=== PATIENT | female | born 1990 | race Caucasian/White ===

== ENCOUNTER 2019-02-03 12:54 | Emergency (ER) | payer OTHER ==
[~2019-02-03] VITALS: Ht 167.6 cm; Wt 106.8 kg
[2019-02-03 13:01] VITALS: BP 116/77; TEMP 98.1
[2019-02-03 13:25] LABS: COLLECTION METHOD CLEAN CATCH
[2019-02-03 13:31] LABS: MUCOUS Present /lpf; PH 5 (5-8); URINE APPEARANCE Hazy; URINE BACTERIA None Seen /hpf; URINE BILIRUBIN Negative (NEGATIVE); URINE BLOOD Negative (NEGATIVE); URINE COLOR Yellow; URINE GLUCOSE Negative (NEGATIVE); URINE KETONE Negative (NEGATIVE); URINE LEUKOCYTE ESTERASE Negative (NEGATIVE); URINE NITRATE Negative (NEGATIVE); URINE PROTEIN(semi-quant) Negative (NEGATIVE); URINE RBC 0-2 /hpf; URINE UROBILINOGEN Negative (NEGATIVE)
[2019-02-03] MEDS ORDERED: BRINTELLIX10 PO (13:36)
[2019-02-03] MEDS ORDERED: SEASONIQUE1 TAB PO (13:37)
[2019-02-03] MEDS ORDERED: LIDODERM 5% PATC1 EA TP (14:24)
[2019-02-03 14:30] VITALS: PULSE 85
== END 2019-02-03 14:31 | disposition home or self-care (01) ==
LOC: COL.ER 12:54
PROVIDERS: Physician Assistant
DX: S39.012A Strain of muscle, fascia and tendon of lower back, initial encounter (principal); F43.10 Post-traumatic stress disorder, unspecified; F17.210 Nicotine dependence, cigarettes, uncomplicated; V43.52XA Car driver injured in collision with other type car in traffic accident, initial encounter

== ENCOUNTER 2019-04-06 23:06 | Emergency (ER) | payer SELFPAY ==
[~2019-04-06] VITALS: Ht 170.2 cm; Wt 104.5 kg
[~2019-04-06 23:06] MED LIST: BRINTELLIX10 PO; LIDODERM 5% PATC1 EA TP; SEASONIQUE1 TAB PO
[2019-04-07] MEDS ORDERED: DOXYCYCLINE HY100 MG PO (00:15)
[2019-04-07 00:26] VITALS: BP 124/72; PULSE 86; TEMP 98.2
== END 2019-04-07 00:27 | disposition home or self-care (01) ==
LOC: COL.ER 23:06
DX: L03.314 Cellulitis of groin (principal); F43.10 Post-traumatic stress disorder, unspecified; E66.9 Obesity, unspecified; F17.210 Nicotine dependence, cigarettes, uncomplicated; Z68.36 Body mass index [BMI] 36.0-36.9, adult

== ENCOUNTER 2019-04-11 15:04 | Outpatient (RCR) | payer OTHER ==
[~2019-04-11 15:04] MED LIST changes: +DOXYCYCLINE HY100 MG PO
== END 2019-07-10 | disposition home or self-care (01) ==
LOC: WSOH
DX: S00.211A Abrasion of right eyelid and periocular area, initial encounter (principal); Z90.49 Acquired absence of other specified parts of digestive tract; W20.8XXA Other cause of strike by thrown, projected or falling object, initial encounter; F17.210 Nicotine dependence, cigarettes, uncomplicated

== ENCOUNTER 2020-02-28 09:55 | Emergency (ER) | payer SELFPAY ==
[~2020-02-28] VITALS: Ht 170.2 cm; Wt 110.2 kg
[2020-02-28] MEDS ORDERED: WOMEN'S DAILY1 TAB PO (10:23)
[2020-02-28 11:33] LABS: STREP SCREEN POSITIVE
[2020-02-28] MEDS ORDERED: ZITHROMAX Z PA250 MG PO (11:38)
[2020-02-28 11:49] VITALS: BP 134/78; PULSE 114; TEMP 102.5
== END 2020-02-28 11:54 | disposition home or self-care (01) ==
LOC: COL.ER 09:55
PROVIDERS: Physician Assistant
DX: J02.0 Streptococcal pharyngitis (principal); Z20.828 Contact with and (suspected) exposure to other viral communicable diseases; Z88.0 Allergy status to penicillin
CPT/HCPCS: J8540

== ENCOUNTER → 2020-04-05 | Outpatient (CLI) | payer OTHER ==
[~2020-04-05] MED LIST changes: +WOMEN'S DAILY1 TAB PO; +ZITHROMAX Z PA250 MG PO
== END ==
LOC: COL.RAD 07:23
DX: Z30.431 Encounter for routine checking of intrauterine contraceptive device (principal)

== ENCOUNTER 2020-07-21 04:00 | Emergency (ER) | payer SELFPAY ==
[~2020-07-21] VITALS: Ht 170.2 cm; Wt 101.4 kg
[2020-07-21 04:06] VITALS: TEMP 97.4
[2020-07-21] MEDS ORDERED: BRINTELLIX10 (04:19)
[2020-07-21 05:15] VITALS: BP 114/77; PULSE 95
== END 2020-07-21 05:15 | disposition home or self-care (01) ==
LOC: COL.ER 04:00
DX: S60.011A Contusion of right thumb without damage to nail, initial encounter (principal); S60.111A Contusion of right thumb with damage to nail, initial encounter; F32.9 Major depressive disorder, single episode, unspecified; F17.210 Nicotine dependence, cigarettes, uncomplicated; Z88.0 Allergy status to penicillin; W23.0XXA Caught, crushed, jammed, or pinched between moving objects, initial encounter

== ENCOUNTER 2021-01-06 15:42 | Emergency (ER) | payer SELFPAY ==
[~2021-01-06] VITALS: Ht 170.2 cm; Wt 104.5 kg
[~2021-01-06 15:42] MED LIST changes: +BRINTELLIX10
[2021-01-06 15:46] VITALS: BP 145/77; PULSE 92; TEMP 97.5
== END 2021-01-06 16:45 | disposition home or self-care (01) ==
LOC: COL.ER 15:42
DX: M72.2 Plantar fascial fibromatosis (principal); F17.200 Nicotine dependence, unspecified, uncomplicated
CPT/HCPCS: J1885